=== PATIENT | male | born 1965 ===

== ENCOUNTER 2016-12-28 20:22 | Emergency (ER) | payer OTHER ==
--- NOTE | 2016-12-28 21:22 | UC ---
Lower Extremity/Ankle HPI - HPI Summary HPI Summary: complaint of pain in the back of his leg from 5AM till 1200 he had a cramping pain in hamstrings pain is constant cramping pain in his leg cramping has been lessening sitting forward to far makes the pain worse walking increases the pain resting and lying down lessens the pain denies trauma, lifting has been doing more yard work than normal hasn't taken any medication for pain - History of Current Complaint Stated Complaint: LFT LEG PAIN Time Seen by Provider: 12/28/16 21:14 Hx Obtained From: Patient - Allergies/Home Medications Allergies/Adverse Reactions: Allergies Allergy/AdvReac Type Severity Reaction Status Date / Time No Known Allergies Allergy Verified 12/28/16 21:37 Home Medications: Home Medications NK [No Home Medications Reported] 12/28/16 [History Confirmed 12/28/16] PMH/Surg Hx/FS Hx/Imm Hx Previously Healthy: Yes Endocrine History Of: Denies: Diabetes, Thyroid Disease Cardiovascular History Of: 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 bicuspid valve - Family History Known Family History: Negative: Cardiac Disease, Hypertension, Diabetes - Social History Occupation: Employed Full-time Lives: With Family Alcohol Use: Occasionally Substance Use Type: None Smoking Status (MU): Never Smoked Tobacco Review of Systems Constitutional: Negative Skin: Negative Eyes: Negative ENT: Negative Respiratory: Negative Cardiovascular: Negative Gastrointestinal: Negative Genitourinary: Negative Motor: Negative Neurovascular: Negative Musculoskeletal: Other: - left leg pain Neurological: Negative Psychological: Negative All Other Systems Reviewed And Are Negative: Yes Physical Exam Triage Information Reviewed: Yes Appearance: No Pain Distress, Well-Nourished Vital Signs Reviewed: Yes Eyes: Positive: Conjunctiva Clear ENT: Positive: Pharynx normal, TMs normal Neck: Positive: No Lymphadenopathy Respiratory: Positive: Lungs clear, Normal breath sounds, No respiratory distress Cardiovascular: Positive: RRR, No Murmur, Pulses Normal Abdomen Description: Positive: Nontender, Soft Bowel Sounds: Positive: Present Musculoskeletal: Positive: Other: - LLE- no edema- normal ROM tenderness in adductor longus no pain in knee, full ROM Neurological Exam: Normal Psychological Exam: Normal Skin Exam: Normal Lower Extremity Course/Dx - Course Course Of Treatment: exam completed. muscle sprain/strain. refuses muscle relaxrer- wants to try a trila of NSAISD and followup with PCP - Differential Dx/Diagnosis Differential Diagnosis/HQI/PQRI: Arthritis, DVT, Fracture (Closed), Sprain, Strain Provider Diagnoses: muscle strain/sprain - left leg Discharge - Discharge Plan Condition: Stable Disposition: HOME Patient Education Materials: Muscle Strain (ED) Referrals: Lolly Bobby MD [Medical Doctor] - Additional Instructions: Increase fluids and rest Take ibuprofen 800 mg PO TID with food, rest your leg, consider muscle relaxer or OTC muscle rub ointments Please review your discharge instructions. If your symptoms do not improve please call your primary care provider or return to urgent care.
[2016-12-28 21:43] VITALS: BP 126/82
== END 2016-12-28 21:46 | disposition home or self-care (01) ==
LOC: UCCORT 20:22
DX: S86.912A Strain of unspecified muscle(s) and tendon(s) at lower leg level, left leg, initial encounter (principal); X58.XXXA Exposure to other specified factors, initial encounter; Y92.9 Unspecified place or not applicable
CPT/HCPCS: 99211; G0463